=== PATIENT | male | born 1990 | race Caucasian/White ===

== ENCOUNTER 2018-10-26 23:19 | Emergency (ER) | payer SELFPAY ==
[~2018-10-26] VITALS: Ht 180.3 cm; Wt 88.5 kg
[~2018-10-26 23:19] MED LIST: ACYC800T PO; HYDR1TAB PO
--- NOTE | 2018-10-27 00:23 | ED EENT ---
History of Present Illness General Chief Complaint: Oral/Throat Problems Stated Complaint: SORE THROAT Source: patient Exam Limitations: no limitations History of Present Illness Date Seen by Provider: Oct 27, 2018 Time Seen by Provider: 00:07 Initial Comments PT ARRIVES VIA POV FROM HOME C/O SORE THROAT X 1 WEEK, GETTING WORSE C/O MUCH PAIN WITH SWALLOWING, BUT NO DIFFICULTY HANDLING SECRETIONS OR DIFFICULTY BREATHING NO FEVER NO URI SYMPTOMS C/O LOWER BACK ACHE NO PROBLEMS URINATING NO JOINT PAIN OR SWELLING NO SICK CONTACTS NOT A FREQUENT PROBLEM NO RELIEF WITH SALT WATER GARGLES, CEPACOL THROAT SPRAY, ETC. AND TOOK A BENADRYL TONIGHT TO HELP SLEEP HAS NOT TAKEN ANY TYLENOL/MOTRIN/ALEVE, ETC FOR PAIN HAS TAKEN A FEW DOSES OF OLD "LEFTOVER" PENICILLIN, BUT HAS OT TAKEN VERY MANY OR ON A REGULAR BASIS PCP: NONE Allergies and Home Medications Allergies Coded Allergies: No Known Allergies (Unverified Allergy, Mild, 09/24/08) Home Medications No Active Prescriptions or Reported Meds Patient Home Medication List Home Medication List Reviewed: Yes Review of Systems Review of Systems Constitutional: no symptoms reported Eyes: No Symptoms Reported Ears: No Symptoms Reported Nose: no symptoms reported Mouth: no symptoms reported Throat: see HPI, pain; denies swelling, denies discharge, denies neck stiffness, denies hoarse, denies aphonia, denies muffled; painful swallowing Respiratory: no symptoms reported Cardiovascular: no symptoms reported Gastrointestinal: no symptoms reported Musculoskeletal: see HPI, back pain Skin: no symptoms reported Neurological: No Symptoms Reported Hematologic/Lymphatic: No Symptoms Reported Immunological/Allergic: no symptoms reported Past Rvczuqc-[id number]-[id number] Hx Patient Social History Alcohol Use: Denies Use Recreational Drug Use: No Smoking Status: Never a Smoker Recent Foreign Travel: No Contact w/Someone Who Travel: No Past Medical History Surgeries: No Respiratory: No Cardiac: No Neurological: No Genitourinary: No Gastrointestinal: No Musculoskeletal: No Endocrine: No HEENT: No Cancer: No Psychosocial: No Integumentary: No Blood Disorders: No Physical Exam Vital Signs Vital Signs - First Documented 10/27/18 00:05 Temp 97.3 Pulse 73 Resp 18 B/P (MAP) 135/79 (97) Height, Weight, BMI Height: '" Weight: lbs. oz. kg; BMI Method: General Appearance: WD/WN, no apparent distress Eyes: bilateral eye normal inspection, bilateral eye PERRL, bilateral eye EOMI Ears: bilateral ear auricle normal, bilateral ear canal normal, bilateral ear TM normal Nose: normal inspection Mouth/Throat: No excessive drooling, No mandibular swelling, No pharynx swelling, No tongue swollen; tonsillar exudate (FEW SMALL PATCHES); No trismus, No uvula swelling, No voice changes; other (MODERATE PHARYNGEAL ERYTHEMA) Neck: non-tender, full range of motion, supple, normal inspection Cardiovascular: regular rate, rhythm, no murmur Respiratory: normal breath sounds, no respiratory distress, no accessory muscle use Gastrointestinal: normal bowel sounds, non tender, soft, no organomegaly 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, no motor/sensory deficits, alert, normal mood/affect, oriented x 3 Skin: normal color, warm/dry; No rash Progress/Results/Core Measures Results/Orders Lab Results Laboratory Tests Test 10/27/18 00:10 Range/Units Group A Streptococcus Screen NEGATIVE NEGATIVE My Orders Orders - MARIAH ASIF DO Rapid Strep A Screen (10/27/18 00:14) Ceftriaxone For Im Use (Rocephin For Im (10/27/18 00:45) Methylprednisolone Sod Succ (Solu-Medrol (10/27/18 00:45) Lidocaine 1% Inj 20 Ml (Xylocaine 1% Inj (10/27/18 00:45) Vital Signs/I&O 10/27/18 00:05 Temp 97.3 Pulse 73 Resp 18 B/P (MAP) 135/79 (97) Progress Progress Note : Progress Note DISCUSSED DOING MONO TEST, PT OPTS TO TRY ANTIBIOTICS FIRST. ADVISED TO FOLLOW UP IN 3-4 DAYS IF NO BETTER, AND MAY NEED ADDITIONAL TESTS AT THAT TIME Departure Impression Primary Impression: Exudative pharyngitis Disposition: 01 HOME, SELF-CARE Condition: Stable Departure-Patient Inst. Referrals: [facility] (PCP/Family) Primary Care Physician Patient Instructions: Sore Throat, Adult (DC) Add. Discharge Instructions: LOTS OF CLEAR LIQUIDS FREQUENT SALT WATER GARGLES OVER THE COUNTER CEPACOL SPRAY/LOZENGES TYLENOL AND MOTRIN NEEDED FOR PAIN OR FEVER FOLLOW UP WITH [facility] IN 3-4 DAYS IF NO BETTER All discharge instructions reviewed with patient and/or family. Voiced understanding. Scripts Methylprednisolone (Medrol) 4 Mg Tab.ds.pk 4 MG PO UD, #1 PKG Prov: MARIAH ASIF DO 10/27/18 Cefprozil (Cefprozil) 500 Mg Tablet 500 MG PO BID, #20 TAB Prov: MARIAH ASIF DO 10/27/18 MARIAH ASIF DO Oct 27, 2018 00:23
[2018-10-27] MEDS ORDERED: CEFP500T4 PO (00:36)
[2018-10-27] MEDS ORDERED: METH4TAB PO (00:36)
[2018-10-27] MEDS ORDERED: cefTRIAXone 1,000 MG/2.86 ml vial (IM ONLY) IM SCH (00:45)
[2018-10-27] MEDS ORDERED: LIDOCAINE 1% INJ 20 ML 20 ML VIAL INJ ONE (00:45)
[2018-10-27] MEDS ORDERED: methylPREDNISolone 125 MG (Solu-MEDROL) VIAL IM ONE (00:45)
[2018-10-27 00:58] VITALS: BP 132/78
== END 2018-10-27 00:59 | disposition home or self-care (01) ==
LOC: EDUNIT# 23:19 → ER 23:27
DX: J02.9 Acute pharyngitis, unspecified (principal)
CPT/HCPCS: 87430; 96372; 99285